=== PATIENT | female | born 1940 | race Caucasian/White ===

== ENCOUNTER → 2020-03-06 09:09 | Outpatient (CLI) | payer OTHER, SELFPAY ==
[2020-03-06 10:20] LABS: BUN Creatinine Ratio 15.6 (6-22); Blood Urea Nitrogen 15 mg/dL (7-17); Calcium 10.3 mg/dL (8.4-10.2); Carbon Dioxide 25 mmol/L (22-32); Chloride 106 mmol/L (98-107); Cholesterol 222 mg/dL (140-199); Estimated Glomerular Filt Rate 56.4 mL/min (>60); Glucose 126 mg/dL (80-110); HDL Cholesterol 41 mg/dL (40-60); HEMOLYSIS < 15 (0-50); LDL Cholesterol Calculated 126 mg/dL (<100); Potassium 4.4 mmol/L (3.4-5.1); Sodium 140 mmol/L (137-145); Triglycerides 275 mg/dL (35-150)
== END ==
PROVIDERS: PCP Internal Medicine; Referring Provider Internal Medicine; Visit Provider Internal Medicine
DX: I25.10 Atherosclerotic heart disease of native coronary artery without angina pectoris (principal); E78.2 Mixed hyperlipidemia; I10 Essential (primary) hypertension
CPT/HCPCS: 36415; 80048; 80061

== ENCOUNTER → 2020-05-29 13:37 | Outpatient (CLI) | payer OTHER, SELFPAY | PROVIDERS: PCP Internal Medicine; Referring Provider Internal Medicine; Visit Provider Internal Medicine | DX: Z13.820 Encounter for screening for osteoporosis (principal); M85.851 Other specified disorders of bone density and structure, right thigh; Z78.0 Asymptomatic menopausal state; Z82.62 Family history of osteoporosis | CPT/HCPCS: 77080 ==

== ENCOUNTER → 2021-02-04 08:59 | Outpatient (CLI) | payer OTHER, SELFPAY ==
--- NOTE | 2021-02-04 | DI.US.S_ITS ---
PROCEDURE: US CAROTID DOPPLER BI INDICATIONS: BRUIT OF LEFT CAROTID ARTERY TECHNIQUE: Color and pulse Doppler interrogation was performed of both carotid systems, with image documentation and velocity measurements. COMPARISON: None. FINDINGS: Stenosis calculations are based on SRU (Society of Radiologists in Ultrasound) criteria. Right side: Brachial blood pressure: 118/69 mm Hg. Common carotid artery peak systolic velocity: 95 cm/sec. Internal carotid artery peak systolic velocity: 67 cm/sec. Internal carotid artery end diastolic velocity: 21 cm/sec. External carotid artery peak systolic velocity: 76 cm/sec. ICA/CCA peak systolic ratio: 0.7 . Mccain scale imaging description: Mild calcified and noncalcified atherosclerotic plaque Percent internal carotid artery stenosis: No hemodynamically significant stenosis . Vertebral artery: Flow direction is antegrade. Left side: Brachial blood pressure: 124/71 mm Hg. Common carotid artery peak systolic velocity: 213 cm/sec. Internal carotid artery peak systolic velocity: 87 cm/sec. Internal carotid artery end diastolic velocity: 18 cm/sec. External carotid artery peak systolic velocity: 71 cm/sec. ICA/CCA peak systolic ratio: 0.4 . Mccain scale imaging description: Moderate noncalcified atherosclerotic plaque in the distal CCA noted. Percent internal carotid artery stenosis: No evidence of ICA stenosis. Vertebral artery: Flow direction is antegrade. IMPRESSION: Elevated velocity in the distal left common carotid artery suggests a proximal stenosis. Consider follow-up CT carotid evaluation. Calcified and noncalcified atherosclerotic plaque without internal carotid artery hemodynamically significant stenosis. Dictated by: Maximiliano Torres M.D. on 02/04/2021 at 12:05 Approved by: Maximiliano Torres M.D. on 02/04/2021 at 12:23
== END ==
PROVIDERS: PCP Internal Medicine; Referring Provider Internal Medicine; Visit Provider Internal Medicine
DX: R09.89 Other specified symptoms and signs involving the circulatory and respiratory systems (principal)
CPT/HCPCS: 93880

== ENCOUNTER → 2021-02-12 07:58 | Outpatient (CLI) | payer OTHER, SELFPAY ==
[2021-02-12 09:26] LABS: BUN Creatinine Ratio 29.5 (6-22); Blood Urea Nitrogen 36 mg/dL (7-17); Calcium 10.8 mg/dL (8.4-10.2); Carbon Dioxide 24 mmol/L (22-32); Chloride 101 mmol/L (98-107); Estimated Glomerular Filt Rate 42.6 mL/min (>60); Glucose 105 mg/dL (80-110); HEMOLYSIS < 15 (0-50); Potassium 4.7 mmol/L (3.4-5.1); Sodium 136 mmol/L (137-145)
== END ==
PROVIDERS: PCP Internal Medicine; Referring Provider Internal Medicine; Visit Provider Internal Medicine
DX: I10 Essential (primary) hypertension (principal)
CPT/HCPCS: 36415; 80048

== ENCOUNTER → 2021-03-29 08:15 | Outpatient (CLI) | payer OTHER, SELFPAY ==
[2021-03-29 09:47] LABS: BUN Creatinine Ratio 26.9 (6-22); Blood Urea Nitrogen 43 mg/dL (7-17); Calcium 9.5 mg/dL (8.4-10.2); Carbon Dioxide 22 mmol/L (22-32); Chloride 105 mmol/L (98-107); Estimated Glomerular Filt Rate 31.2 mL/min (>60); Glucose 105 mg/dL (80-110); HEMOLYSIS < 15 (0-50); Potassium 4.3 mmol/L (3.4-5.1); Sodium 138 mmol/L (137-145)
== END ==
PROVIDERS: PCP Internal Medicine; Referring Provider Internal Medicine; Visit Provider Internal Medicine
DX: N18.9 Chronic kidney disease, unspecified (principal); I10 Essential (primary) hypertension
CPT/HCPCS: 36415; 80048

== ENCOUNTER 2021-09-16 10:15 | Emergency (ER) | payer OTHER, SELFPAY ==
[2021-09-16 11:05] VITALS: BP 134/77; PULSE 77; RESP 20; TEMP 36.7; O2SAT 97; BMI 24.5
--- NOTE | 2021-09-16 11:11 | DI.RAD.S_ITS ---
PROCEDURE: XR ANKLE RT MIN 3V INDICATIONS: Ankle pain, swelling and bruising TECHNIQUE: 3 views of the ankle were acquired. COMPARISON: None. FINDINGS: Bones: No fractures or dislocations. Ankle mortise is normally aligned. No suspicious bony lesions. Soft tissues: No tibiotalar joint effusion. Achilles tendon appears normal. IMPRESSION: No acute osseous abnormality. Dictated by: Samy Madden M.D. on 09/16/2021 at 11:41 Approved by: Samy Madden M.D. on 09/16/2021 at 11:42
[2021-09-16 13:03] VITALS: PULSE 78; O2SAT 92
[2021-09-16 13:04] VITALS: BP 186/77; PULSE 77; O2SAT 93
--- NOTE | 2021-09-16 13:50 | DI.RAD.S_ITS ---
PROCEDURE: XR FOOT RT MIN 3V INDICATIONS: Trauma TECHNIQUE: Three views of the foot were acquired. COMPARISON: None. FINDINGS: Bones: Decreased mineralization. No fractures or dislocations. No suspicious bony lesions. Soft tissues: There is a tiny calcification medial to the 1st MTP joint, donor site uncertain. No tibiotalar joint effusion. Achilles tendon appears normal. IMPRESSION: Possible avulsion fracture along the medial aspect of the 1st MTP joint. Otherwise no acute fracture or dislocation. Dictated by: Marlyn Banks M.D. on 09/16/2021 at 14:22 Approved by: Marlyn Banks M.D. on 09/16/2021 at 14:24
[2021-09-16] MEDS: ACETAMINOPHEN 325 MG TABLET 975 MG PO (14:48)
[2021-09-16 15:08] VITALS: BP 174/80; PULSE 69; RESP 14; O2SAT 97
--- NOTE | 2021-09-16 17:35 | ED.EXTPRO ---
HPI - Extremity Problem <Bon Gaviria PA-C - Last Filed: 09/16/21 17:44> General Chief complaint: Extremity Problem,Nontraumatic Stated complaint: Right foot turning black, pain Time Seen by Provider: 09/16/21 13:05 Source: patient Mode of arrival: Ambulatory History of Present Illness HPI Narrative: 81-year-old female with no reported past medical history presents to the ED with right ankle and foot pain. Patient states that she does not recall any trauma, woke up with bruising and pain. Patient brought in by her , who endorses that patient had consumed several alcoholic drinks yesterday that might have caused her to fall, not remember. Patient endorses being able to walk on the foot. Denies numbness, tingling, weakness. Denies any other injuries. Patient is not on blood thinners. Related Data Allergies Allergy/AdvReac Type Severity Reaction Status Date / Time No Known Drug Allergies Allergy Verified 09/16/21 11:04 Review of Systems <Bon Gaviria PA-C - Last Filed: 09/16/21 17:44> Review of Systems ROS Unobtainable: All systems reviewed & are unremarkable except as noted in HPI and below Constitutional Constitutional: Denies chills, Denies fatigue, Denies fever(s), Denies frequent falls, Denies lethargy and Denies weakness Eyes Eyes: Denies change in vision, Denies eye discharge, Denies irritation and Denies loss of vision ENT Ears, Nose, Mouth, and Throat: Denies change in voice, Denies dizziness, Denies neck pain, Denies sore throat and Denies throat swelling Cardiovascular Cardiovascular: Denies chest pain, Denies irregular heart rhythm, Denies lightheadedness, Denies palpitations, Denies dyspnea, Denies dyspnea on exertion and Denies orthopnea Respiratory Respiratory: Denies cough, Denies dyspnea, Denies dyspnea on exertion and Denies wheezing Gastrointestinal Gastrointestinal: Denies abdominal pain, Denies change in bowel habits, Denies diarrhea, Denies nausea and Denies vomiting Genitourinary Genitourinary: Denies hematuria, Denies flank pain, Denies urinary incontinence and Denies urinary urgency Musculoskeletal Musculoskeletal: Denies back pain, Denies muscle weakness, Denies neck pain, Denies numbness and Denies tingling Comments: Right ankle and foot pain, bruising Integumentary/Breasts Skin/Breast: Denies pruritus, Denies erythema, Denies rash and Denies wounds Neurologic Neurologic: Denies behavioral changes, Denies confusion, Denies dizziness, Denies frequent falls, Denies loss of vision, Denies numbness, Denies tingling and Denies weakness Psychiatric Psychiatric: Denies anxiety, Denies behavioral changes, Denies confusion, Denies depression, Denies homicidal ideation and Denies suicidal ideation Endocrine Endocrine: Denies fatigue, Denies flushing and Denies palpitations Hematologic/Lymphatic Hematologic/Lymphatic: Denies easy bruising Allergic/Immunologic Allergic/Immunologic: Denies urticaria, Denies throat swelling and Denies wheezing Patient History <Bon Gaviria PA-C - Last Filed: 09/16/21 17:44> Social History Smoking Status: Never smoker Smoking Status: Never smoker alcohol intake frequency: 3 or more drinks per day Substance Use Type: does not use Exam <Bon Gaviria PA-C - Last Filed: 09/16/21 17:44> Initial Vital Signs Initial Vital Signs: Vital Signs Temperature 98.1 F 09/16/21 11:05 Pulse Rate 77 09/16/21 11:05 Respiratory Rate 20 09/16/21 11:05 Blood Pressure 134/77 09/16/21 11:05 Pulse Oximetry 97 09/16/21 11:05 Const General: cooperative, healthy appearing and comfortable HENKY Head: normal to inspection Eyes General: appearance normal, both eyes and all related structures Neck Neck: normal visual inspection Chest Chest: normal inspection of the chest Resp Effort & Inspection: normal respiratory effort Auscultation: clear to auscultation bilaterally Cardio Rate: regular rate Rhythm: regular rhythm Back/Spine/Pelvis Back: normal to inspection Skin General: no rashes or lesions noted Neuro General: patient alert, patient awake and patient oriented x3 Extrem Other: Tender to palpation on base of 1st MTP, right lateral ankle. Bruising noted below the right lateral malleolus. Full range of motion. Gait normal. Neurovascularly intact. <Carrie Waldrop DO - Last Filed: 09/17/21 13:47> Initial Vital Signs Initial Vital Signs: Vital Signs Temperature 98.1 F 09/16/21 11:05 Pulse Rate 77 09/16/21 11:05 Respiratory Rate 20 09/16/21 11:05 Blood Pressure 134/77 09/16/21 11:05 Pulse Oximetry 97 09/16/21 11:05 Course <Bon Gaviria PA-C - Last Filed: 09/16/21 17:44> Orders Ordered: Discontinued Medications Acetaminophen (Acetaminophen 325 Mg Tablet) 975 mg PO NOW ONE Stop: 09/16/21 13:51 Last Admin: 09/16/21 14:48 Dose: 975 mg Documented by: STEPHEN Vital Signs Vital signs: Vital Signs - 8 hr 09/16/21 11:05 09/16/21 13:03 09/16/21 13:04 Temperature 98.1 F Pulse Rate 77 78 77 Respiratory Rate 20 Blood Pressure 134/77 186/77 H Pulse Oximetry 97 92 93 09/16/21 15:08 Temperature Pulse Rate 69 Respiratory Rate 14 Blood Pressure 174/80 H Pulse Oximetry 97 <Carrie Waldrop DO - Last Filed: 09/17/21 13:47> Orders Ordered: Discontinued Medications Acetaminophen (Acetaminophen 325 Mg Tablet) 975 mg PO NOW ONE Stop: 09/16/21 13:51 Last Admin: 09/16/21 14:48 Dose: 975 mg Documented by: STEPHEN Vital Signs Vital signs: Vital Signs - 8 hr 09/16/21 11:05 09/16/21 13:03 09/16/21 13:04 Temperature 98.1 F Pulse Rate 77 78 77 Respiratory Rate 20 Blood Pressure 134/77 186/77 H Pulse Oximetry 97 92 93 09/16/21 15:08 Temperature Pulse Rate 69 Respiratory Rate 14 Blood Pressure 174/80 H Pulse Oximetry 97 MDM - Extremity (Nontraumatic) <Bon Gaviria PA-C - Last Filed: 09/16/21 17:44> Imaging Data Extremity x-ray #1: Radiologist's Impression: PROCEDURE:? XR FOOT RT MIN 3V ? INDICATIONS:? Trauma ? TECHNIQUE:? Three views of the foot were acquired.? ? COMPARISON:? None. ? FINDINGS:? ? Bones:? Decreased mineralization.? No fractures or dislocations.? No suspicious bony lesions.? ? Soft tissues:? There is a tiny calcification medial to the 1st MTP joint, donor site uncertain.? No tibiotalar joint effusion.? Achilles tendon appears normal.? ? ? IMPRESSION:? Possible avulsion fracture along the medial aspect of the 1st MTP joint.? Otherwise no acute fracture or dislocation. ? ? Dictated by: Marlyn Banks M.D. on 09/16/2021 at 14:22 ? ? Extremity x-ray #2: Radiologist's Impression: PROCEDURE:? XR ANKLE RT MIN 3V ? INDICATIONS:? Ankle pain, swelling and bruising ? TECHNIQUE:? 3 views of the ankle were acquired.? ? COMPARISON:? None. ? FINDINGS:? ? Bones:? No fractures or dislocations.? Ankle mortise is normally aligned.? No suspicious bony lesions.? ? Soft tissues:? No tibiotalar joint effusion.? Achilles tendon appears normal.? ? ? IMPRESSION:? No acute osseous abnormality. ? ? ? Dictated by: Samy Madden M.D. on 09/16/2021 at 11:41 ? ? Approved by: Samy Madden M.D. on 09/16/2021 at? MDM Narrative Medical decision making narrative: 81-year-old female with no reported past medical history presents to the ED with right ankle and foot pain. Concern for fracture/dislocation. Will obtain x-rays. Will give Tylenol for pain. Will reassess. X-ray shows possible avulsion fracture of the base of the 1st MTP. Will put patient in a shoe, patient will follow-up with PCP and Ortho. ED return precautions discussed. Patient discharged. Discharge Plan Departure Patient Disposition: Home Clinical Impression: Avulsion fracture Instructions: DI for Avulsion Fracture Activity Restrictions/Additional Instructions: You were evaluated in the ED today for right foot pain. Your foot x-ray shows a small avulsion fracture at the base of your big toe. You may keep your foot in a boot, follow-up with ortho. You may call [facility] at [phone] for an appointment. You may take Tylenol for your symptoms. Return to the ED if your symptoms worsen, you experience numbness, tingling, weakness. Referrals: Eleazar House MD [Primary Care Provider] - <Carrie Waldrop DO - Last Filed: 09/17/21 13:47> Cosign ED Attending Jeature Attestation: I was immediately available in the department for consultation. Documentation has been reviewed.
== END 2021-09-16 15:05 | disposition home or self-care (01) ==
PROVIDERS: Emergency Provider Student in an Organized Health Care Education/Training Program; PCP Internal Medicine
DX: S92.311A Displaced fracture of first metatarsal bone, right foot, initial encounter for closed fracture (principal); X58.XXXA Exposure to other specified factors, initial encounter
CPT/HCPCS: 73610; 73630; 99283